=== PATIENT | female | born 1975 | race Native Hawaiian/Other Pacific Islander ===

== ENCOUNTER 2018-10-13 12:25 | Emergency (ER) | payer OTHER ==
[~2018-10-13] VITALS: Ht 162.6 cm; Wt 77.1 kg
[2018-10-13 16:14] VITALS: BP 125/75; TEMP 98
== END 2018-10-13 16:35 | disposition short-term general hospital (02) ==
LOC: ED 12:25
DX: S82.861A Displaced Maisonneuve's fracture of right leg, initial encounter for closed fracture (principal); M25.571 Pain in right ankle and joints of right foot; W18.39XA Other fall on same level, initial encounter; Y92.89 Other specified places as the place of occurrence of the external cause
CPT/HCPCS: 96374; 96375; 99284; J1170; J3360

== ENCOUNTER 2018-10-13 16:46 | Outpatient (CLI) | payer OTHER | END 2018-10-13 17:46 | disposition short-term general hospital (02) | LOC: AMB 16:46 | DX: M84.471A Pathological fracture, right ankle, initial encounter for fracture (principal) | CPT/HCPCS: A0425; A0429 ==

== ENCOUNTER 2020-07-30 08:02 | Outpatient (CLI) | payer OTHER | END 2020-07-30 22:03 | disposition home or self-care (01) | LOC: INF 08:02 | PROVIDERS: ATTEND Internal Medicine | DX: Z23 Encounter for immunization (principal) | CPT/HCPCS: 96372 ==

== ENCOUNTER 2020-08-21 08:14 | Outpatient (CLI) | payer OTHER | END 2020-08-21 22:11 | disposition home or self-care (01) | LOC: INF 08:14 | PROVIDERS: ATTEND Internal Medicine | DX: Z23 Encounter for immunization (principal) | CPT/HCPCS: 96372 ==